=== PATIENT | male | born 1970 | race Caucasian/White ===

== ENCOUNTER 2021-12-23 00:05 | Emergency (ER) | payer OTHER ==
[~2021-12-23] VITALS: Ht 165.1 cm; Wt 71.2 kg
[2021-12-23 00:15] VITALS: BP_SYST 142
--- NOTE | 2021-12-23 00:26 | NUR ---
51 YR OLD AOX4 [place] SPEAKING MALE WITH COMPLAINT OF BLOOD IN URINE WITH RETENTION AT TIMES. PT REPORTS HAVING 7/10 RIGHT TESTICLE PAIN FOR TWO DAYS. PT DENIES ANY BURNING WITH URINATION. AT THE BEDSIDE FOR EVALUATION. URINE SENT TO LAB
[2021-12-23 01:33] LABS: BASOPHILS # (AUTO) 0.1 K/uL (0.0-0.2); BASOPHILS % (AUTO) 0.5 % (0.0-2.0); EOSINOPHILS # (AUTO) 0.1 K/uL (0.0-0.4); EOSINOPHILS % (AUTO) 0.8 % (0.0-4.0); HEMATOCRIT 38.7 % (36-54); LYMPHOCYTES # (AUTO) 1.6 K/uL (1.0-5.5); LYMPHOCYTES % (AUTO) 12.8 % (20.5-51.5); MEAN CORPUSCULAR HEMOGLOBIN 29 pg (27-31); MEAN CORPUSCULAR HGB CONC 34 % (32-36); MEAN CORPUSCULAR VOLUME 87 fL (79.0-98.0); MONOCYTES # (AUTO) 1.3 K/uL (0.0-1.0); MONOCYTES % (AUTO) 10.2 % (1.7-9.3); NEUTROPHILS # (AUTO) 9.5 K/uL (1.8-7.7); NEUTROPHILS % (AUTO) 75.7 % (40.0-70.0); PLATELET COUNT (AUTO) 236 K/uL (130-430); RED BLOOD CELL COUNT(AUTO) 4.44 MIL/uL (4.2-6.2); RED CELL DISTRIBUTION WIDTH 14.5 % (9.0-15.0); WHITE BLOOD COUNT (AUTO) 12.5 K/uL (4.8-10.8)
[2021-12-23 01:35] LABS: CALCIUM 9.4 mg/dL (8.4-11.0); CREATININE 1.1 mg/dL (0.55-1.30); POTASSIUM 3.6 mmol/L (3.5-5.1)
[2021-12-23 02:11] LABS: ALBUMIN 3.7 g/dL (3.4-4.8); TOTAL BILIRUBIN 0.2 mg/dL (0.0-1.0)
[2021-12-23 02:14] LABS: BILIRUBIN,URINE NEGATIVE (NEGATIVE); BLOOD, URINE 3+ (NEGATIVE); CLARITY/URINE CLEAR (CLEAR); COLOR,URINE YELLOW (YELLOW); GLUCOSE,URINE NEGATIVE (NEGATIVE); KETONES,URINE NEGATIVE (NEGATIVE); LEUKOCYTE ESTERASE ,URINE 1+ (NEGATIVE); NITRITE, URINE NEGATIVE (NEGATIVE); PROTEIN URINE TRACE (NEGATIVE); UROBILINOGEN,URINE 0.2 (0.2-1.0)
[2021-12-23] MEDS ORDERED: CIPR500T5 PO (02:40)
[2021-12-23 03:00] LABS: BACTERIA,URINE FEW /HPF (None Seen); RBC,URINE 20-50 /HPF (0-3); WBC,URINE 80-100 /HPF (0-3)
[2021-12-23 03:02] LABS: MUCUS,URINE 2+ /LPF (None Seen)
[2021-12-23 04:21] LABS: BARBITURATE, URINE NEGATIVE (NEG <=200); BENZODIAZEPINE, URINE NEGATIVE (NEG <=150); CANNABINOID, URINE NEGATIVE (NEG <=50); COCAINE, URINE NEGATIVE (NEG <=150); METHAMPHETAMINES SCREEN,URINE NEGATIVE (NEG <=500); OPIATE, URINE NEGATIVE (NEG <=100); PHENCYCLIDINE SCREEN,URINE NEGATIVE (NEG <=25); UR TRICYCLIC ANTIDEPRESSANTS NEGATIVE (NEG <=300); URINE AMPHETAMINE NEGATIVE (NEG <=500); URINE METHADONE NEGATIVE (NEG <=200); URINE OXYCODONE SCREEN NEGATIVE (NEG <=100); URINE PROPOXYPHENE SCREEN NEGATIVE (NEG <=300)
== END 2021-12-23 03:11 | disposition home or self-care (01) ==
LOC: SED 00:05
DX: N39.0 Urinary tract infection, site not specified (principal)
CPT/HCPCS: 36415; 76376; 80053; 80307; 81000; 85025; 87086; 99284

== ENCOUNTER 2022-02-13 18:09 | Emergency (ER) | payer OTHER ==
[~2022-02-13] VITALS: Ht 165.1 cm; Wt 71.2 kg
[~2022-02-13 18:09] MED LIST: CIPR500T5 PO
[2022-02-13 18:18] VITALS: BP_SYST 145
[2022-02-13 19:13] LABS: BILIRUBIN,URINE NEGATIVE (NEGATIVE); CLARITY/URINE CLEAR (CLEAR); COLOR,URINE YELLOW (YELLOW); GLUCOSE,URINE NEGATIVE (NEGATIVE); KETONES,URINE NEGATIVE (NEGATIVE); LEUKOCYTE ESTERASE ,URINE TRACE (NEGATIVE); NITRITE, URINE NEGATIVE (NEGATIVE); PROTEIN URINE NEGATIVE (NEGATIVE); UROBILINOGEN,URINE 0.2 (0.2-1.0)
--- NOTE | 2022-02-13 19:36 | NUR ---
Patient ambulatory to bed hallway 1 for evaluation
--- NOTE | 2022-02-13 19:39 | NUR ---
Pt came from home with c/o testical swelling and pain across the groin area, rated pain 10/10. Pt says he is also experiencing light hematuria since wednesday. Pt A&O X4, ambulatory, and follows commands. Pt reports having this issue in November. Safety precautions in place.
--- NOTE | 2022-02-13 19:40 | NUR ---
Dr. Kat at bedside with patient for evaluation.
[2022-02-13] MEDS ORDERED: cefTRIAXone 1 GM IVPB PREMIX 50 ML IV ONE (19:45)
[2022-02-13] MEDS ORDERED: KETOROLAC TROMETHAMINE 30 MG VIAL IVP ONE (19:45)
[2022-02-13] MEDS ORDERED: NACL 0.9% 1,000 ML IV ONE (19:45)
[2022-02-13 19:49] LABS: BLOOD, URINE TRACE (NEGATIVE)
[2022-02-13 19:52] LABS: BACTERIA,URINE FEW /HPF (None Seen); MUCUS,URINE None Seen /LPF (None Seen); RBC,URINE 0-3 /HPF (0-3)
--- NOTE | 2022-02-13 20:09 | NUR ---
Pt to US accompanied by staff.
[2022-02-13 20:14] LABS: BASOPHILS # (AUTO) 0.1 K/uL (0.0-0.2); BASOPHILS % (AUTO) 0.8 % (0.0-2.0); EOSINOPHILS % (AUTO) 0.4 % (0.0-4.0); HEMOGLOBIN 13.4 g/dL (14.0-18.0); LYMPHOCYTES # (AUTO) 1.2 K/uL (1.0-5.5); LYMPHOCYTES % (AUTO) 12.7 % (20.5-51.5); MEAN CORPUSCULAR HEMOGLOBIN 30 pg (27-31); MEAN CORPUSCULAR HGB CONC 34 % (32-36); MEAN CORPUSCULAR VOLUME 87 fL (79.0-98.0); MONOCYTES # (AUTO) 0.6 K/uL (0.0-1.0); MONOCYTES % (AUTO) 6.5 % (1.7-9.3); NEUTROPHILS # (AUTO) 7.5 K/uL (1.8-7.7); NEUTROPHILS % (AUTO) 79.6 % (40.0-70.0); PLATELET COUNT (AUTO) 202 K/uL (130-430); RED CELL DISTRIBUTION WIDTH 15.1 % (9.0-15.0); WHITE BLOOD COUNT (AUTO) 9.5 K/uL (4.8-10.8)
[2022-02-13 20:20] LABS: CALCIUM 8.3 mg/dL (8.4-11.0); CREATININE 1.14 mg/dL (0.55-1.30); POTASSIUM 3.7 mmol/L (3.5-5.1)
[2022-02-13 20:26] LABS: ALBUMIN 3.8 g/dL (3.4-4.8); TOTAL BILIRUBIN 0.5 mg/dL (0.0-1.0)
--- NOTE | 2022-02-13 20:40 | NUR ---
Medications dc per Dr. Nino order.
[2022-02-13] MEDS ORDERED: NAPR-690 PO (20:55)
[2022-02-13] MEDS ORDERED: CIPR500T5 PO (20:55)
[2022-02-13 21:02] VITALS: BP_SYST 145
--- NOTE | 2022-02-13 21:02 | NUR ---
Patient given written and verbal discharge instructions and verbalizes understanding. ER Dr. Kat discussed with patient the results and treatment provided. Patient in stable condition. ID arm band removed. Rx of cipro and naproxen given. Patient educated on pain management and to follow up with PMD. Pain Scale 3. Opportunity for questions provided and answered. Medication side effect fact sheet provided.
== END 2022-02-13 21:02 | disposition home or self-care (01) ==
LOC: SED 18:09
DX: N45.1 Epididymitis (principal); N39.0 Urinary tract infection, site not specified; I10 Essential (primary) hypertension
CPT/HCPCS: 36415; 76870-TC; 80053; 81000; 83605; 85025; 87040; 99284